=== PATIENT | male | born 1960 | race Caucasian/White ===

== ENCOUNTER 2016-10-26 05:37 | Day surgery (SDC) | payer BC ==
[2016-10-25 11:44] LABS: HEMATOCRIT 48.9 % (42.0-54.0); HEMOGLOBIN 17.1 g/dL (13.5-17.5); MCV 91.6 fL (80.0-100.0); MEAN PLATELET VOLUME 11.1 fL (7.4-10.4); RBC 5.34 10x6/uL (4.20-6.10); RDW 11.7 % (11.5-14.5); WBC 6.6 10x3/uL (4.8-10.8)
[2016-10-25 12:02] LABS: ANION GAP 6.6 mmol/L (8-16); CALCIUM 9.3 mg/dL (8.5-10.1); CARBON DIOXIDE 32.8 mmol/L (21.0-32.0); CREATININE - SERUM 1.3 mg/dL (0.6-1.3); POTASSIUM - SERUM 4.4 mmol/L (3.5-5.1)
[~2016-10-26] VITALS: Ht 172.7 cm; Wt 108.0 kg
[~2016-10-26 05:37] MED LIST: AMARYL1 MG PO; ASPIRIN 81 MG E81 MG PO; AXIRON30 MG/1.5; AXIRON30 MG/1.5 TP; EFFIENT10 MG PO; FISH OIL 1,0001 CA1 PO; FISH OIL 1,2001 CAP PO; NIASPAN500 MG PO; NITROSTAT0.4 MG SL; PLAVIX75 MG OR; PLAVIX75 MG PO; PRAVACHOL40 MG PO; PRINIVIL20 MG PO
[2016-10-26] MEDS ORDERED: LOVENOX120 MG/0.8 SC (06:25)
[2016-10-26 06:28] VITALS: BP 150/89; Ht 172.7 cm; Wt 108.0 kg
[2016-10-26] MEDS ORDERED: HYDROCODONE-APA1 TAB PO (08:44)
--- NOTE | 2016-10-26 10:33 | NUR ---
1015 IV DC WITH CATHER TIP INTACT
--- NOTE | 2016-10-30 17:08 | OP ---
PATIENT NAME: BRADY TAYLOR MEDICAL RECORD: [id number] :58 LOCATION:[facility] ADMISSION DATE: SURGEON: SARBJIT HAIDER MD DATE OF OPERATION: 10/26/2016 Orthopedic Surgery Operative Note DIAGNOSES: 1. Dupuytren contracture, right hand, small finger. 2. Trigger finger, right-hand index finger. 3. Trigger finger, index finger. 4. MCP joint inflammation, right hand. PROCEDURES: 1. Dupuytrens contracture excision, right hand, small finger. 2. A1 reddy trigger finger release, right-hand index finger. 3. A1 reddy release, right-hand long finger. 4. Injection into the long finger MCP joint. SURGEON: Sarbjit Haider MD ANESTHESIA: General. INTRAOPERATIVE COMPLICATIONS: None. SUMMARY OF PATHOLOGIC FINDINGS: Consistent with the preoperative diagnosis, the patient had trigger fingers as described and a Dupuytren's contracture as well as swelling of the right hand long finger MCP joint. OPERATIVE SUMMARY IN DETAIL: After obtaining the appropriate preoperative orthopedic surgery consent as well as anesthetic consultation, evaluation and clearance, the patient was brought to the operating room and placed on the operating table in supine position. After general laryngeal mask was administered, tourniquet was placed about the proximal aspect of the right upper extremity. Right upper extremity was prepped and draped in routine sterile fashion. The arm was elevated and exsanguinated, tourniquet inflated to 350 mmHg. Volar zigzag incision was made over the Dupuytren's contracture. Careful dissection was taken down to expose the entire palmar aponeurotic cord. This was excised in its entirety. Wound was then irrigated and closed with 4-0 Prolene in a multiple interrupted fashion. A small incision was made at the base of the long finger, taken down directly to the A1 reddy. Under direct visualization, the entire A1 reddy was incised. This was irrigated and closed. Attention was then turned to the index finger A1 reddy. A second incision was created, taken down to the level of the A1 reddy, which was incised under direct visualization releasing the trigger finger. Again, this was irrigated and closed with 4-0 Prolene. Next, 20 mg of Depo-Medrol and 3 cc of 0.25% Marcaine plain were injected into the MCP joint of the long finger on the right hand. Having completed this, sterile dressings were applied. Tourniquet was deflated. The patient was awakened, taken to recovery room in stable condition. All final needle and sponge counts were correct. TRANSINT:[id number] Voice Confirmation ID: [id number] DOCUMENT ID: [id number] OPERATIVE REPORT [id number] BRADY TAYLOR MD, SARBJIT WADE at 1708 CC: [id number] DICTATION DATE: 10/26/16900 REGULATORY AGENCY DIRECTOR: 10/26/16918 [facility] 10/26/16 [facility] [address] [place] [address]
== END 2016-10-26 10:40 | disposition home or self-care (01) ==
LOC: D.OPS 05:37 → D.PAN 07:30 → D.OPS 08:00
PROVIDERS: Anesthesiology
DX: M72.0 Palmar fascial fibromatosis [Dupuytren] (principal); M65.321 Trigger finger, right index finger; M65.331 Trigger finger, right middle finger; M13.841 Other specified arthritis, right hand

== ENCOUNTER → 2017-08-07 08:45 | Outpatient (CLI) | payer BC ==
[~2017-08-07] VITALS: Ht 172.7 cm; Wt 106.1 kg
[~2017-08-07 08:45] MED LIST changes: +HYDROCODONE-APA1 TAB PO; +LOVENOX120 MG/0.8 SC
[2017-08-07 10:37] VITALS: Ht 172.7 cm; Wt 106.1 kg
== END | disposition home or self-care (01) ==
LOC: D.FANS 08:45
DX: E11.9 Type 2 diabetes mellitus without complications (principal)

== ENCOUNTER → 2017-09-19 07:46 | Outpatient (CLI) | payer BC ==
[2017-08-07 10:37] VITALS: BMI 35.5
== END | disposition home or self-care (01) ==
LOC: D.US 07:46
DX: K75.9 Inflammatory liver disease, unspecified (principal)

== ENCOUNTER 2017-11-16 07:34 | Outpatient (CLI) | payer BC ==
[~2017-11-16] VITALS: Ht 172.7 cm; Wt 106.8 kg
[2017-11-16 08:11] LABS: BASOPHILS 0.4 % (0-2); HEMATOCRIT 47.5 % (42.0-54.0); HEMOGLOBIN 16.8 g/dL (13.5-17.5); IMMATURE GRANULOCYTES 0.4 % (0-5); LYMPHOCYTES 22.2 % (15-50); MCH 32.1 pg (26.0-34.0); MCHC 35.4 g/dL (31.0-37.0); MCV 90.6 fL (80.0-100.0); MEAN PLATELET VOLUME 10.7 fL (7.4-10.4); PLATELET COUNT 230 10x3/uL (130-400); RBC 5.24 10x6/uL (4.20-6.10)
[2017-11-16 08:21] LABS: ANION GAP 10.7 mmol/L (8-16); APTT 26.6 SECONDS (22.8-39.4); CALCIUM 9.3 mg/dL (8.5-10.1); CREATININE - SERUM 1.1 mg/dL (0.6-1.3); INR 1.01 (0.85-1.17); POTASSIUM - SERUM 4.7 mmol/L (3.5-5.1); PROTIME 12.9 SECONDS (11.6-15.0)
[2017-11-16 08:50] VITALS: Ht 172.7 cm; Wt 106.8 kg
[2017-11-16 09:44] LABS: CHOL - HDL RATIO 5.7 ratio (2.3-4.9); LDL-HDL RATIO 4.2 ratio (1.5-3.5)
[2017-11-17 06:13] LABS: ALPHA FETOPROTEIN -(TUMOR MRK) 2.1 ng/mL (0.0-8.3)
[2017-11-18 14:08] LABS: HAPTOGLOBIN 184 mg/dL (34-200)
[2017-11-19 15:19] LABS: SMOOTH MUSCLE ABS (ACTIN) 7 Units (0-19)
== END 2017-11-16 15:00 | disposition home or self-care (01) ==
LOC: D.OPS 07:34 → D.CT 10:00 → D.OPS 10:00 → D.CT 11:00 → D.OPS 15:00
PROVIDERS: Internal Medicine Gastroenterology; Radiology Diagnostic Radiology
DX: R74.8 Abnormal levels of other serum enzymes (principal); R16.0 Hepatomegaly, not elsewhere classified; Z01.812 Encounter for preprocedural laboratory examination

== ENCOUNTER → 2017-12-07 13:05 | Outpatient (CLI) | payer BC ==
[2017-11-16 08:50] VITALS: BMI 35.8
[2017-12-07 13:55] LABS: % SATURATION 26 % (15-55); IRON 90 ug/dl (35-150); TOTAL IRON BIND CAPACITY 339 ug/dl (260-445); UNSAT IRON BIND CAPACITY 249 ug/dl (150-375)
[2017-12-07 14:10] LABS: BILIRUBIN - DIRECT 0.1 mg/dL (0.00-0.30); BILIRUBIN - INDIRECT 0.26 mg/dL (0.00-1.00); BILIRUBIN - TOTAL 0.36 mg/dL (0.2-1.3)
[2017-12-10 11:13] LABS: FOLATE (FOLIC ACID) - SERUM 11.2 ng/mL (>3.0)
[2017-12-11 03:11] LABS: HEPATITIS C ANTIBODY 0.1 (0.0-0.9)
[2017-12-11 12:18] LABS: MITOCHONDRIAL ANTIBODY 10.3 Units (0.0-20.0)
== END | disposition home or self-care (01) ==
LOC: D.LAB 12-06 11:45
PROVIDERS: Internal Medicine Gastroenterology
DX: R74.8 Abnormal levels of other serum enzymes (principal); R16.0 Hepatomegaly, not elsewhere classified

== ENCOUNTER → 2018-05-20 07:21 | Outpatient (CLI) | payer BC ==
[2017-11-16 08:50] VITALS: BMI 35.8
[2018-05-20 08:09] LABS: ALBUMIN 3.6 g/dL (3.4-5.0); BILIRUBIN - DIRECT 0.07 mg/dL (0.00-0.30); BILIRUBIN - INDIRECT 0.27 mg/dL (0.00-1.00); BILIRUBIN - TOTAL 0.34 mg/dL (0.2-1.3)
== END | disposition home or self-care (01) ==
LOC: D.US 07:21
PROVIDERS: Internal Medicine Gastroenterology
DX: K76.0 Fatty (change of) liver, not elsewhere classified (principal)

== ENCOUNTER → 2018-09-23 13:04 | Outpatient (CLI) | payer BC ==
[2017-11-16 08:50] VITALS: BMI 35.8
[2018-09-23 13:38] LABS: BASOPHILS 0.7 % (0-2); EOSINOPHILS 2.9 % (0-7); HEMATOCRIT 42.3 % (42.0-54.0); HEMOGLOBIN 15.1 g/dL (13.5-17.5); IMMATURE GRANULOCYTES 0.4 % (0-5); LYMPHOCYTES 29.5 % (15-50); MCH 32.1 pg (26.0-34.0); MCHC 35.7 g/dL (31.0-37.0); MCV 89.8 fL (80.0-100.0); MEAN PLATELET VOLUME 10.6 fL (7.4-10.4); MONOCYTES 8.5 % (2-11); PLATELET COUNT 224 10x3/uL (130-400); RBC 4.71 10x6/uL (4.20-6.10); WBC 6.9 10x3/uL (4.8-10.8)
[2018-09-23 14:45] LABS: ERYTHROCYTE SEDIMENTATION RATE 10 mm/hr (0-20)
[2018-09-25 10:10] LABS: ANA REFLEX - DIRECT Negative (Negative)
[2018-09-26 20:08] LABS: CYCLIC CITRULL PEPTIDE IGG/IGA 4 units (0-19)
== END | disposition home or self-care (01) ==
LOC: D.LAB 13:04
PROVIDERS: Orthopaedic Surgery
DX: M13.80 Other specified arthritis, unspecified site (principal)

== ENCOUNTER 2018-10-10 14:44 | Observation (INO) | payer BC ==
[~2018-10-10] VITALS: Ht 172.7 cm; Wt 115.0 kg
--- NOTE | ~2018-10-10 | HEMODYNAMI ---
PATIENT:BRADY TAYLOR MEDICAL RECORD: [id number] : 58 LOCATION:[address] [facility]# [id number] ADMISSION DATE: 10/10/18 Generatedon:10/11/201811:51 Patient name: BRADY TAYLOR Patient #: [id number] SSN: : 1960 Date of study: 10/11/2018 Page: Of Hemodynamic Procedure Report Patient Data Patient Demographics Procedure consent was obtained First Name: BRADY Gender: Male Last Name: BRANDON : 1960 [facility] Initial: LAVON Age: 58 year(s) Patient #: [id number] Race: Additional ID: [id number] Contact details Address: [address] [place] [address] [facility] State: [place] City: [facility] Zip code: [address] Past Medical History Allergies: No known allergies Admission Admission Data Admission Date: 10/10/2018 Admission Time: 17:39 Room #: D.2124 Lab Results Lab Result Date: 10/11/2018 Lab Result Time: 0:00 Biochemistry Name Units Result Min Max BUN mg/dl 23 --(----)-* 7 18 Creatinine l 1.2 -*(----)-- 21 215 Kinase CBC Name Units Result Min Max Hemoglobin g/dl 14.2 --(*---)-- 13.5 17.5 Procedure Procedure Types Cath Procedure Diagnostic Procedure [facility] w/Coronaries FFR/IVUS Intra-Coronary IVUS Initial Sedation Charges Moderate Sedation up to 15 minutes Moderate Sedation up to 30 minutes PCI Procedure Coronary Stent Coronary Stent Initial x2 Procedure Description Procedure Date Procedure Date: 10/11/2018 Procedure Start Time: 11:26 Procedure End Time: 11:47 Procedure Staff Name Function Rishi Mcelroy MD Performing Physician Maude Pabon RT Purchasing Manager Estrella Kelly RT Monitor Essence Chris RN Nurse Maude Pabon RT Scrub Procedure Data Cath Procedure Fluoroscopy Diagnostic fluoroscopy Total fluoroscopy Time: 4.9 time: 4.9 min min Diagnostic fluoroscopy Total fluoroscopy dose: 4.9 dose: 4.9 mGy mGy Contrast Material Contrast Material Type Amount (ml) Isovue 300 118 Entry Location Entry Primary Successful Side Size Upsize Upsize Entry Closure Succes sful Closure Location (Fr) 1 (Fr) 2 (Fr) Remarks Device Remarks Femoral Right 5 Fr 6 Fr Exoseal artery Short Estimated blood loss: 10 ml Diagnostic catheters Device Type Used For End Catheter Placement MULTIPACK Pigtail 5 Fr Procedure catheter MULTIPACK JL 4.0 5Fr Left Coronary catheter Angiography MULTIPACK 3DRC 5Fr catheter Procedure Complications No complications Procedure Medications Medication Administration Route Dosage Oxygen etCO2 Nasal cannula 2 l/min Lidocaine 2% added to field 20 Heparin Flush Bag added to field 2 bags (1000units/500ml NS) 0.9% NaCl I.V. 100 ml/hr Versed I.V. 1 mg Fentanyl I.V. 50 mcg Versed I.V. 1 mg Fentanyl I.V. 50 mcg Versed I.V. 1 mg Fentanyl I.V. 50 mcg Heparin Bolus I.V. 4000 units Integrilin (Bolus I.V. 9 ml 2mg/ml) Versed I.V. 1 mg Fentanyl I.V. 50 mcg Plavix P.O. 600 mg Hemodynamics Rest HGB: 14.2 (g/dl) Heart Rate: 65 (bpm) Snapshots Pre Cath Intra NCS Post Cath Vital Signs Time Heart Resp SPO2 etCO2 NIBP (mmHg) Rhythm Pain Sedation Rate (ipm) (%) (mmHg) Status Level (bpm) 11:10:43 67 14 100 30.8 133/98(111) NSR 0 (11) 10(A) , No pain 11:14:49 69 16 94 30 118/80(101) NSR 0 (11) 10(A) , No pain 11:18:53 74 15 95 0 128/80(106) NSR 0 (11) 10(A) , No pain 11:23:01 77 13 95 32.3 127/76(108) NSR 0 (11) 10(A) , No pain 11:27:06 80 13 96 36.8 110/88(102) NSR 0 (11) 9(A) , No pain 11:31:06 89 15 96 33.7 99/85(91) NSR 0 (11) 9(A) , No pain 11:35:00 88 16 95 0 109/95(101) NSR 0 (11) 9(A) , No pain 11:38:59 88 14 95 0 106/82(100) NSR 0 (11) 9(A) , No pain 11:43:44 88 16 97 0 117/84(104) NSR 0 (11) 10(A) , No pain Medications Time Medication Route Dose Verified Delivered Reason Notes Effectiveness by by 11:12:18 Oxygen etCO2 2 Rishi Lowry used for Nasal l/min Lilibeth Chris RN procedure cannula 11:12:25 Lidocaine 2% added 20ml Rishidorothy Blackwell for local to vial Lilibeth Mcelroy MD anesthetic field 11:12:34 Heparin Flush added 2 Rishi Rishi used for Bag to bags Lilibeth Mcelroy MD procedure (1000units/500ml field NS) 11:12:55 0.9% NaCl I.V. 100 Rishi Buffie Per physician ml/hr Lilibeth hCris RN 11:20:34 Versed I.V. 1 mg Rishi Buffie for sedation Lilibeth Chris RN 11:20:39 Fentanyl I.V. 50 Rishi Buffie for sedation mcg Lilibeth Chris RN 11:24:00 Versed I.V. 1 mg Rishi Buffie for sedation Lilibeth Chris RN 11:24:04 Fentanyl I.V. 50 Rishi Buffie for sedation mcg Lilibeth Chris RN 11:30:21 Versed I.V. 1 mg Rishi Buffie for sedation Lilibeth Chris RN 11:30:25 Fentanyl I.V. 50 Rishi Buffie for sedation mcg Lilibeth Chris RN 11:35:54 Heparin Bolus I.V. 4000 Rishi Buffie for verif ied units Lilibeth Chris RN anticoagulation with dr mcelroy 11:36:55 Integrilin I.V. 9 ml Rishi Buffie for Waste d 1 (Bolus 2mg/ml) Lilibeth Chris RN antiplatelet ml of therapy vial 11:43:06 Versed I.V. 1 mg Rishi Buffie for sedation Lilibeth Chris RN 11:43:09 Fentanyl I.V. 50 Rishi Buffie for sedation mcg Lilibeth Chris RN 11:47:53 Plavix P.O. 600 Rishi Markie for mg Lilibeth Chris RN antiplatelet therapy Procedure Log Time Note 10:52:17 Diagnostic Cath status Elective 10:52:20 Maude Pabon RT(R) sent for patient. Start room use. 10:52:35 Time tracking: Regular hours (M-F 7:00 - 5:00) 10:52:41 Plan of Care:Hemodynamics will remain stable., Cardiac rhythm will remain stable., Comfort level will be maintained., Respiratory function will remain adequate., Patient/ family verbilizes understanding of procedure., Procedure tolerated without complication., Recovers from procedure without complications.. 10:52:48 Patient received from Med II to CCL 2 Alert and oriented. Tansferred to table in Supine position. 10:54:01 Lab Result : BUN 23 mg/dl 10:54:01 Lab Result : Creatinine Kinase 1.2 l 10:54:01 Lab Result : Hemoglobin 14.2 g/dl 11:02:56 Warm blankets applied, and cuco hugger turned on for patient comfort. 11:02:56 Correct patient and procedure confirmed by team. 11:02:58 Signed procedure consent form obtained from patient. 11:02:59 ECG and BP/O2 sat monitors applied to patient. 11:09:40 Vital chart was started 11:09:41 Baseline sample Acquired. 11:09:45 Rhythm: sinus rhythm 11:09:46 Full Disclosure recording started 11:09:55 H&P Date Dictated: 10/10/2018 Within 30 days and on chart.. 11:09:57 Pre-procedure instructions explained to patient. 11:10:00 Family in waiting room. 11:10:08 Patient NPO since Midnight. 11:10:18 Patient allergic to No known allergies 11:10:23 Is the patient allergic to Iodine/contrast media? No. 11:10:29 Was the patient premedicated? Yes 11:10:31 Is patient on blood thinner?No 11:10:34 Patient diabetic? Yes. 11:10:35 If diabetic: On Metformin? No 11:10:41 Snore? Yes 11:10:42 Sleep apnea? No 11:10:47 Dentures? No ? 11:10:54 Patient pain scale 0/10 ?. 11:10:59 IV patent on arrival in right forearm with 0.9% NaCl at O. 11:11:03 Lab results completed and on chart. 11:11:07 Right groin area was prepped with chlora-prep and draped in sterile fashion 11::08 Alarms reviewed by R. N. :: Sharps counted by scrub and verified by R.N. 11::12 Physician paged 11:12:18 Oxygen 2 l/min etCO2 Nasal cannula was administered by Essence Chris RN; used for procedure; 11:12:25 Lidocaine 2% 20ml vial added to field was administered by Rishi Mcelroy MD; for local anesthetic; ::34 Heparin Flush Bag (1000units/500ml NS) 2 bags added to field was administered by Rishi Mcelroy MD; used for procedure; 11::55 0.9% NaCl 100 ml/hr I.V. was administered by Essence Chris RN; Per physician; :18:04 Zero performed for pressure channel P1 11:18:44 --------ALL STOP TIME OUT------ 11:18:47 Final Timeout: patient, procedure, and site verified with staff and physician. All members of the team are in agreement. 11:18:50 Right groin site verified by team. 11:18:54 Physical assessment completed. ASA score P 2 - A patient with mild systemic disease as per Rishi Mcelroy MD. 11:18:58 Sedation plan: IV Moderate Sedation Medication:Versed, Fentanyl 11:20:34 Versed 1 mg I.V. was administered by Essence Chris RN; for sedation; 11:20:39 Fentanyl 50 mcg I.V. was administered by Essence Chris RN; for sedation; 11:24:00 Versed 1 mg I.V. was administered by Essence Chris RN; for sedation; 11:24:04 Fentanyl 50 mcg I.V. was administered by Essence Chris RN; for sedation; 11:25:54 Use device set Femoral Dx 11:25:56 Procedure started. 11:25:58 ACIST Syringe (07156) opened to sterile field. 11:25:59 Bag Decanter (2002S) opened to sterile field. 11:25:59 Medline Cath Pack ([id number]) opened to sterile field. 11:26:00 DIAGNOSTIC WIRE .035 260cm J wire (460565) opened to sterile field. 11:26:01 ACIST Hand Control (21136) opened to sterile field. 11:26:01 ACIST Manifold (00995) opened to sterile field. 11:26:02 DIAGNOSTIC Multipack 5Fr catheter set (SR4375) opened to sterile field. 11:26:04 Tegaderm 4 x 4 (1626W) opened to sterile field. 11:26:06 SHEATH 5FR [place] (VTC635) opened to sterile field. 11:26:10 Local anesthetic to right femoral artery with Lidocaine 2% by Rishi Mcelroy MD.INITIAL ACCESS ONLY 11:26:46 A 5 Fr sheath was inserted into the Right Femoral artery 11:27:32 A MULTIPACK Pigtail 5 Fr catheter was advanced over the wire and used for Procedure. 11:30:21 Versed 1 mg I.V. was administered by Essence Chris RN; for sedation; 11:30:25 Fentanyl 50 mcg I.V. was administered by Essence Chris RN; for sedation; 11:30:44 EF : 60 % 11:30:47 Catheter removed. 11:31:04 A MULTIPACK JL 4.0 5Fr catheter was advanced over the wire and used for Left Coronary Angiography. 11:32:12 LCA angiography performed. 11:32:14 Catheter removed. 11:32:32 A MULTIPACK 3DRC 5Fr catheter was advanced over the wire and used for . 11:32:42 RCA angiography performed. 11:35:06 SHEATH 6FR [place] (FQP162) opened to sterile field. 11:35:06 INFLATOR Merit BasixCompak (EV6586) opened to sterile field. 11:35:07 CHOICE PT Extra Support 182cm wire ([id number]) opened to sterile field. 11:35:07 GUIDE 6FR XBLAD 3.5 catheter (05181595) opened to sterile field. 11:35:08 GUIDE 6FR AR 1.0 SH catheter ([id number]) opened to sterile field. 11:35:19 Homer Chevak Eagleye IVUS Catheter (77717G) opened to sterile field. 11:35:33 Sheath upsized to a 6 Fr Short. 11:35:48 6 Fr AR1SH guide catheter was inserted over the wire 11:35:53 choice pt wire advanced. 11:35:54 Heparin Bolus 4000 units I.V. was administered by Essence Chris RN; for anticoagulation; verified with dr tauth 11:36:55 Integrilin (Bolus 2mg/ml) 9 ml I.V. was administered by Essence Chris RN; for antiplatelet therapy; Wasted 1 ml of vial 11:37:57 IVUS catheter advanced over wire. 11:37:58 IVUS catheter removed over wire. 11:38:31 Place stent Inflation Number: 1 A SHELLY RX 3.5 x 26 stent ([id number]) was prepped and advanced across the Mid RCA. The stent was deployed at 17 MERY for 0:08 (min:sec). 11:38:46 Inflation number: 2 The stent balloon was then re-inflated across the Mid RCA to 21 MERY for 0:10 (min:sec). 11:39:20 Inflation number: 3 The stent balloon was then re-inflated across the Mid RCA to 21 MERY for 0:10 (min:sec). 11:39:53 Stent catheter was removed intact over wire. 11:39:54 Wire removed. 11:39:55 Guide catheter removed. 11:40:17 6 Fr XBLAD3.5 guide catheter was inserted over the wire 11:40:22 choice pt wire advanced. 11:40:28 Wire redirected to LAD. 11:43:06 Versed 1 mg I.V. was administered by Essence Chris RN; for sedation; 11:43:09 Fentanyl 50 mcg I.V. was administered by Essence Chris RN; for sedation; 11:43:24 Place stent Inflation Number: 1 A SHELLY RX 2.25 x 26 stent ([id number]) was prepped and advanced across the Mid LAD. The stent was deployed at 17 MERY for 0:10 (min:sec). 11:43:47 EXOSEAL 6Fr (EX600) opened to sterile field. 11:43:55 Wire removed. 11:43:55 Guide catheter removed. 11:44:04 Sheath removed intact; hemostasis achieved with Exoseal to the Right Femoral artery. 11:44:06 Procedure ended.(Physican Out) 11:44:18 Fluoroscopy time 04.90 minutes. 11:44:48 Fluoroscopy dose: 4.9 mGy 11:44:48 Flurop Dose total: 4.9 11:44:54 Contrast amount:Isovue 300 118ml. 11:44:56 Sharps counted by scrub and verified by R.N. 11:44:57 Insertion/operative site no bleeding no hematoma. 11:45:01 Post right femoral artery:stable 11:45:10 Post-procedure physical assessment completed. ASA score P 2 - A patient with mild systemic disease as per Rishi Mcelroy MD. 11:45:14 Post procedure rhythm: unchanged. 11:45:17 Estimated blood loss: 10 ml 11:45:19 Post procedure instruction explained to patient.Patient verbalizes understanding. 11:46:06 Procedure type changed to Cath procedure, Diagnostic procedure, LHC, LHC w/Coronaries, FFR/IVUS, Intra-Coronary IVUS Initial, Sedation Charges, Moderate Sedation up to 15 minutes, Moderate Sedation up to 30 minutes, PCI procedure, Coronary Stent, Coronary Stent Initial x2 11:46:07 Procedure and supply charges have been captured, reviewed, submitted and are correct. 11:46:41 Procedure Complication : No complications 11:46:43 Vital chart was stopped 11:46:43 See physician's report for complete and final results. 11:46:46 Report given to Pre/Post Procedure Room. 11:47:31 Patient transfered to Pre/Post Procedure Room with Stretcher. 11:47:34 Procedure ended. 11:47:34 Full Disclosure recording stopped 11:47:37 End room use (Document Last) 11:47:53 Plavix 600 mg P.O. was administered by Essence Chris RN; for antiplatelet therapy; Intervention Summary Intervention Notes Time ActionType Lesion and Equipment Used Action# Pressure Duration Attributes 11:38:31 Place stent Mid RCA SHELLY RX 3.5 x 1 17 00:08 26 stent ([id number]) 11:38:46 Reinflate Mid RCA SHELLY RX 3.5 x 2 21 00:10 stent 26 stent balloon ([id number]) 11:39:20 Reinflate Mid RCA SHELLY RX 3.5 x 3 21 00:10 stent 26 stent balloon ([id number]) 11:43:24 Place stent Mid LAD SHELLY RX 2.25 x 1 17 00:10 26 stent ([id number]) Device Usage Item Name Manufacture Quantity Catalog Number Hospital Part Current M inimal Lot# / Charge Number Stock Stock Serial# Code ACIST Syringe Acist 1 99351 330311 789177 041654 2 0 (79266) [employer] [place] Bag Decanter Microtek 1 238758 47345 531216 5 () Medical Inc. Medline Cath Medline 1 [id number] 286922 36262 565848 5 Pack ([id number]) DIAGNOSTIC [facility] Fernie 1 550518 497834 519462 540905 3 0 WIRE .035 260cm J wire (374233) ACIST Hand Acist 1 50008 983068 646616 424725 5 Control Medical (57054) Systems Inc ACIST Manifold Acist 1 14598 159146 359549 265825 5 (86823) Medical Systems Inc DIAGNOSTIC Cardinal 1 ND9114 769106 75284 742710 3 0 Multipack 5Fr Health catheter set (WY9429) Tegaderm 4 x 4 3M 1 1626W 443692 602062 794240 5 (1626W) SHEATH 5FR Terumo 1 UBF198 964815 851752 277830 5 [place] (CUI303) MULTIPACK Cardinal 1 531202 5 Pigtail 5 Fr Health catheter MULTIPACK JL Cardinal 1 658943 5 4.0 5Fr Health catheter MULTIPACK 3DRC Cardinal 1 085877 5 5Fr catheter Health SHEATH 6FR Terumo 1 PXU579 252946 389304 282287 4 0 [place] (ODS099) INFLATOR Merit Merit 1 CR9083 468380 683743 355775 1 5 Prezma (PK2475) CHOICE PT Commack 1 [id number] 383226 465015 176667 5 Extra Support Scientific 182cm wire ([id number]) GUIDE 6FR Cardinal 1 84554202 168511 750383 450705 1 0 XBLAD 3.5 Health catheter (41575898) GUIDE 6FR AR Medtronic 1 [id number] 179777 60201 058230 1 1.0 SH catheter ([id number]) Homer Homer 1 77868X 246731 433735 491768 8 Chevak Eagleye IVUS Catheter (18111C) SHELLY RX 3.5 x Medtronic 1 [id number] 068628 0531142 287354 5 [id number] 26 stent ([id number]) SHELLY RX 2.25 x Medtronic 1 [id number] 252338 5106223 522610 5 [id number] 26 stent ([id number]) EXOSEAL 6Fr Cardinal 1 EX600 232265 134325 052873 1 0 (EX600) Health Signature Audit Aguila Stage Time Signature Unsigned Intra-Procedure 10/11/2018 Estrella Kelly 11:51:35 AM RT(R) Signatures Monitor : Estrella Kelly Signature : RT Date : Time : [address] [place] [address]
[2018-10-10 15:19] LABS: BASOPHILS 0.5 % (0-2); EOSINOPHILS 3.4 % (0-7); HEMATOCRIT 40.3 % (42.0-54.0); HEMOGLOBIN 14.2 g/dL (13.5-17.5); IMMATURE GRANULOCYTES 0.2 % (0-5); LYMPHOCYTES 30.3 % (15-50); MCH 31.6 pg (26.0-34.0); MCHC 35.2 g/dL (31.0-37.0); MCV 89.6 fL (80.0-100.0); MEAN PLATELET VOLUME 10.7 fL (7.4-10.4); MONOCYTES 8.2 % (2-11); NEUTROPHILS 57.4 % (40-80); PLATELET COUNT 225 10x3/uL (130-400); RDW 12.1 % (11.5-14.5); WBC 6.5 10x3/uL (4.8-10.8)
[2018-10-10 15:35] LABS: ALBUMIN 3.8 g/dL (3.4-5.0); ALKALINE PHOSPHATASE 54 U/L (46-116); ALT (SGPT) 61 U/L (10-68); BILIRUBIN - TOTAL 0.26 mg/dL (0.2-1.3); CALC OSMOLALITY 286 mosm/kg (275-300); CARBON DIOXIDE 24.3 mmol/L (21.0-32.0); CHLORIDE - SERUM 106 mmol/L (98-107); GLUCOSE 136 mg/dL (74-106); POTASSIUM - SERUM 3.7 mmol/L (3.5-5.1); SODIUM 141 mmol/L (136-145); UREA NITROGEN 25 mg/dL (7-18); eGFR NON AFRICAN AMERICAN 81 mL/min (90-120)
[2018-10-10 15:43] VITALS: BP 152/100
[2018-10-10 15:47] LABS: CKMB 1.3 U/L (0.0-3.6); CREATINE KINASE 269 UL (21-232); TROPONIN-I < 0.017 ng/mL (0.000-0.060)
[2018-10-10 17:08] VITALS: BP 136/91
--- NOTE | 2018-10-10 18:00 | NUR ---
DINNER TRAY PROVIDED, PT STABLE, CALL LIGHT WITHIN REACH, DENIES NEEDS, WILL CONTINUE TO MONITOR. AT BEDSIDE.
[2018-10-10 18:06] VITALS: BP 140/92
[2018-10-10 19:02] VITALS: BP 144/91
--- NOTE | 2018-10-10 19:09 | NUR ---
REPORT HANDED OFF TO REGULO PIÑA. PT STABLE, CALL LIGHT WITHIN REACH, DENIES NEEDS, WILL CONTINUE TO MONITOR.
[2018-10-10 19:27] LABS: CKMB 1.3 U/L (0.0-3.6); CREATINE KINASE 247 UL (21-232); TROPONIN-I < 0.017 ng/mL (0.000-0.060)
[2018-10-10 20:00] VITALS: BP 86/55
[2018-10-11] VITALS: BP 140/78
[2018-10-11 01:00] VITALS: BP 147/82; Ht 172.7 cm; Wt 115.0 kg
[2018-10-11 04:00] VITALS: BP 90/50
[2018-10-11 07:23] LABS: CALC OSMOLALITY 285 mosm/kg (275-300); CALCIUM 8.9 mg/dL (8.5-10.1); CARBON DIOXIDE 26.6 mmol/L (21.0-32.0); CHLORIDE - SERUM 105 mmol/L (98-107); CKMB 0.7 U/L (0.0-3.6); CREATINE KINASE 190 UL (21-232); CREATININE - SERUM 1.2 mg/dL (0.6-1.3); GLUCOSE 119 mg/dL (74-106); SODIUM 141 mmol/L (136-145); UREA NITROGEN 23 mg/dL (7-18); eGFR NON AFRICAN AMERICAN 66 mL/min (90-120)
[2018-10-11 07:24] LABS: POTASSIUM - SERUM 4.4 mmol/L (3.5-5.1); TROPONIN-I < 0.017 ng/mL (0.000-0.060)
--- NOTE | 2018-10-11 08:14 | NUR ---
ALERT AND ORIENTED. DENIES ANY NEEDS. TO HAVE A CATH TODAY. TELEMERTY SHOWS SR. WILL MONITOR
[2018-10-11 08:20] LABS: BASOPHILS 0.6 % (0-2); EOSINOPHILS 4.3 % (0-7); HEMATOCRIT 41.6 % (42.0-54.0); HEMOGLOBIN 14.9 g/dL (13.5-17.5); IMMATURE GRANULOCYTES 0.2 % (0-5); LYMPHOCYTES 24.6 % (15-50); MCH 32.4 pg (26.0-34.0); MCHC 35.8 g/dL (31.0-37.0); MCV 90.4 fL (80.0-100.0); MEAN PLATELET VOLUME 10.7 fL (7.4-10.4); MONOCYTES 10.6 % (2-11); NEUTROPHILS 59.7 % (40-80); PLATELET COUNT 228 10x3/uL (130-400); RDW 12.2 % (11.5-14.5); WBC 6.2 10x3/uL (4.8-10.8)
[2018-10-11 08:55] VITALS: BP 129/79
--- NOTE | 2018-10-11 10:02 | NUR ---
PT PRE OPED FOR CATH
--- NOTE | 2018-10-11 10:11 | NUR ---
NO NEEDS VOICED. CALL LIGHT IN REACH. WILL MONITOR NEEDS.
[2018-10-11] MEDS ORDERED: PLAVIX75 MG PO (12:05)
--- NOTE | 2018-10-11 12:15 | NUR ---
RIGHT GROIN DRESSING C/D/I. NO S/S OF HEMATOMA NOTED. RIGHT PEDAL PULSE PALPABLE.
--- NOTE | 2018-10-11 12:45 | NUR ---
RIGHT GROIN DRESSING C/D/I. NO S/S OF HEMATOMA. VSS. RIGHT PEDAL PULSE PRESENT. DENIES NAUESA.
--- NOTE | 2018-10-11 13:00 | NUR ---
PLAVIX RX CALLED IN TO [facility] PER PT REQUEST.
--- NOTE | 2018-10-11 13:30 | NUR ---
RIGHT GROIN DRESSING C/D/I. NO S/S OF HEMATOMA NOTED. RIGHT PEDAL PULSE PALPABLE.
--- NOTE | 2018-10-11 14:00 | NUR ---
PT'S AT BEDSIDE. PT GIVEN TURKEY SANDWICH PER REQUEST. DENIES NAUSEA. RIGHT GROIN DRESSING C/D/I. NO S/S OF HEMATOMA NOTED. RIGHT PEDAL PULSE PALPABLE.
--- NOTE | 2018-10-11 15:00 | NUR ---
HEAD OF BED INCREASED TO 30 DEGREES. RIGHT GROIN DRESSING C/D/I. NO S/S OF HEMATOMA NOTED. RIGHT PEDAL PULSE PALPABLE. VSS
--- NOTE | 2018-10-11 15:57 | NUR ---
1535 DRESSING TO RIGHT GROIN IS CDI, AREA IS SOFT AND NONTENDER. PT IS ALERT AND DENIES ANY C/O. VSS, CALL LIGHT IN REACH
--- NOTE | 2018-10-11 16:29 | NUR ---
1550 IV DC'D WITH CATH INTACT. PT IS ALERT, DENIES ANY C/O. DRESSING CDI TO RIGHT GROIN, PEDAL PULSES PALPABLE. PT DRESSING FOR DC WITH ASSIST FROM . 1605 PT HAS AMBULATED TO THE BATHROOM AND VOIDED QS. DENIES ANY C/O. DC INSTRUCTIONS REVIEWED WITH PT AND WHO VERBALIZE UNDERSTANDING. PLAVIX PRESCRIPTION CALLED TO [facility] PER PT REQUEST BY NICOLASA JACKSON RN. PT AND VERBALIZE UNDERSTANDING TO START THIS MEDICATION TOMORROW. PT ESCORTED TO PRIVATE AUTO VIA WC BY NURSE WITH DRIVING HIM HOME. PT HAS ALL PERSONAL BELONGINGS AND DENIES ANY C/O UPON DC.
--- NOTE | 2018-10-15 10:22 | OP ---
PATIENT NAME: BRADY TAYLOR MEDICAL RECORD: [id number] :58 LOCATION:[facility] ADMISSION DATE:10/10/18 SURGEON: DUC FINLEY MD DATE OF OPERATION: 10/11/2018 PROCEDURES: 1. PTCA stent RCA. 2. PTCA stent LAD. 3. Intravascular ultrasound RCA. 4. Left heart catheterization. 5. Selective coronary angiography. 6. Left ventriculogram. INDICATION: Unstable angina and coronary artery disease. PROCEDURE PERFORMED: After informed consent was obtained and after a detailed description of risks, benefits as well as alternative therapies, the patient elected to proceed with angiogram and angioplasty. The right femoral area was prepped and draped in normal sterile fashion. Right femoral artery was cannulated via modified Seldinger technique with placement of 6-Moroccan sheath. All catheters exchanged through this sheath. FINDINGS: The left ventriculogram was performed in standard 30-degree LIGHT view, reveals good cardiac wall motion throughout all segments. Overall ejection fraction estimated 60%. SELECTIVE CORONARY ANGIOGRAPHY: 1. Left main showed no significant angiographic disease. 2. Left anterior descending has previously placed stents, these are patent; however, after the previously placed stents, there are 2 areas of greater than 70% stenosis. 3. The left circumflex has moderate irregularities, but no flow-limiting stenosis. 4. The right coronary artery has previously placed stents. Intravascular ultrasound confirms there is 85% in-stent restenosis at one point. PTCA STENT OF THE RCA: The stent used was a 3.5 x 26 mm [place]. Result was 0% residual stenosis. PTCA STENT OF THE LAD: The stent used was a 2.25 x 26 mm Ron taken to 17 atmospheres. Result was 0% residual stenosis. OVERALL IMPRESSION: Successful PTCA stent of the RCA and LAD, both going from 70% to 85% initial stenosis to 0% residual. TRANSINT:[id number] Voice Confirmation ID: [id number] DOCUMENT ID: [id number] OPERATIVE REPORT [id number] BRADY TAYLOR LAVON DUC FINLEY MD at 1022 CC: [id number] DICTATION DATE: 10/11/18 1151 ENTERTAINMENT CENTRE MANAGER: 10/11/18 1249 DIS IN 10/11/18 [address] [place] [address]
== END 2018-10-11 16:33 | disposition home or self-care (01) ==
LOC: D.ER 14:44 → D.M2 17:39 → D.EDHOLD 17:39 → OBSVTIME 17:39 → D.M2 18:58 → D.CLR 10-11 12:04
PROVIDERS: Emergency Medicine; ADMIT Internal Medicine Cardiovascular Disease
DX: I25.110 Atherosclerotic heart disease of native coronary artery with unstable angina pectoris (principal); I10 Essential (primary) hypertension; E11.9 Type 2 diabetes mellitus without complications

== ENCOUNTER → 2019-06-06 07:58 | Outpatient (CLI) | payer BC ==
[2018-10-11 01:00] VITALS: BMI 38.5
--- NOTE | 2019-06-10 10:10 | ST ---
PATIENT:BRADY TAYLOR MEDICAL RECORD: [id number] SEX: M LOCATION:[facility] ORDER #: ADMISSION DATE: 06/06/19 AGE OF PATIENT: 58 REFERRING PHYSICIAN: INTERPRETING PHYSICIAN: DUC FINLEY MD DATE OF SERVICE: 06/06/2019 Nuclear Stress Test INDICATIONS: Angina and coronary artery disease, shortness of breath. He was exercised on standard Lexiscan protocol with 28 mCi of sestamibi injected at peak stress, 10 mCi used previously for rest images. FINDINGS: Gated SPECT reveals a preserved ejection fraction of 52% with decreased thickening and brightening throughout the inferior segments. SPECT Imaging: Cardiolite was used as myocardial perfusion agent. There was a mixed perfusion defect inferiorly and apically, partially fixed, partially reversible. There is pure reversibility anteriorly as well as lateral, which includes the basal, mid, apical anterior segments as well as apical lateral, mid lateral, basal lateral segments. Degree of reversibility is mild to moderate between the 2 defects. The amount of myocardium involved at risk is very large. OVERALL IMPRESSION: This is a high-risk nuclear stress test, large amount of myocardium involved with ischemia anteriorly, apically, laterally and inferiorly suggestive of multivessel coronary artery disease. TRANSINT:[id number] Voice Confirmation ID: [id number] DOCUMENT ID: [id number] DUC FINLEY MD at 1010 CC: DANUTA NELSON [id number] DICTATION DATE: 06/09/19 1037 BALANCE BRIDGE INSPECTOR: 06/09/19 2305 DEP CLI 06/06/19 [place] [id number] [place] [id number]
== END | disposition home or self-care (01) ==
LOC: D.HCCARDIO 07:58
PROVIDERS: ATTEND Internal Medicine Interventional Cardiology
DX: I25.10 Atherosclerotic heart disease of native coronary artery without angina pectoris (principal)

== ENCOUNTER 2019-06-24 07:49 | Outpatient (CLI) | payer BC ==
[~2019-06-24] VITALS: Ht 172.7 cm; Wt 104.5 kg
--- NOTE | ~2019-06-24 | HEMODYNAMI ---
PATIENT:BRADY TAYLOR MEDICAL RECORD: [id number] : 58 LOCATION:[facility] ADMISSION DATE: 06/24/19 Generatedon:06/24/201910:32 Patient name: BRADY TAYLOR Patient #: [id number] SSN: [id number] : 1960 Date of study: 06/24/2019 Page: Of Hemodynamic Procedure Report Patient Data Patient Demographics Procedure consent was obtained First Name: BRADY Gender: Male Last Name: BRANDON : 1960 Middle Initial: LAVON Age: 58 year(s) Patient #: [id number] Race: SSN: [id number] Additional ID: [id number] Contact details Address: [address] [place] [address] [place] State: [place] City: [facility] Zip code: [address] Past Medical History Allergies Allergen Reaction Date Comments Reported Other allergy 06/24/2019 nka Admission Admission Data Admission Date: 06/24/2019 Admission Time: 7:49 Arrival Date: 06/24/2019 Arrival Time: 10:10 Admit Source: Other Insurance Payor: Private Room #: [id number] health insurance [facility] #: [id number] Height (in.): 67 BSA: 2.14 (m2) Height (cm.): 170.18 BMI: 35.87 (kg/m2) Weight (lbs.): 229 Weight (kg.): 103.87 Lab Results Lab Result Date: 06/24/2019 Lab Result Time: 0:00 Biochemistry Name Units Result Min Max BUN mg/dl 25 --(----)-* 7 18 Creatinine mg/dl 1.1 --(--*-)-- 0.6 1.3 eGFR ml/min 73.00982 *-(----)-- 90 120 NONAFRICAN CBC Name Units Result Min Max Hemoglobin g/dl 13.8 --(*---)-- 13.5 17.5 Procedure Procedure Types Cath Procedure Diagnostic Procedure [facility] w/Coronaries FFR/IVUS FFR Initial Sedation Charges Moderate Sedation up to 30 minutes PCI Procedure Coronary Stent Coronary Stent Initial x2 Procedure Description Procedure Date Procedure Date: 06/24/2019 Procedure Start Time: 10:04 Procedure End Time: 10:29 Procedure Staff Name Function Rishi Mcelroy MD Performing Physician Maude Pabon RT Monitor Fatemeh Catalan RT Monitor Rashid Vora RN Nurse Estrella Kelly RT Scrub Indication Angina Procedure Data Cath Procedure Fluoroscopy Diagnostic fluoroscopy Total fluoroscopy Time: 4.3 time: 4.3 min min Diagnostic fluoroscopy Total fluoroscopy dose: dose: 1032 mGy 1032 mGy Contrast Material Contrast Material Type Amount (ml) Isovue 300 95 Entry Location Entry Primary Successful Side Size Upsize Upsize Entry Closure Succes sful Closure Location (Fr) 1 (Fr) 2 (Fr) Remarks Device Remarks Femoral Right 5 Fr 6 Fr Exoseal artery Short Estimated blood loss: 10 ml Diagnostic catheters Device Type Used For End Catheter Placement MULTIPACK Pigtail 5 Fr LV Angiography catheter MULTIPACK JL 4.0 5Fr Left Coronary catheter Angiography MULTIPACK 3DRC 5Fr Right Coronary catheter Angiography Procedure Complications No complications Procedure Medications Medication Administration Route Dosage 0.9% NaCl I.V. 100 ml/hr Oxygen etCO2 Nasal cannula 2 l/min Heparin Flush Bag added to field 1 bags (1000units/500ml NS) Lidocaine 2% added to field 20 Versed I.V. 2 mg Fentanyl I.V. 100 mcg Versed I.V. 1 mg Heparin Bolus I.V. 4000 units Integrilin (Bolus I.V. 9.5 ml 2mg/ml) Integrilin (Bolus wasted 0.5 ml 2mg/ml) Plavix P.O. 600 mg Hemodynamics Rest BSA: 2.14 (m2) HGB: 13.8 (g/dl) O2 Consumption: Estimated: 252.9 (ml/min) O2 Con sumption indexed: Estimated:118.18 (ml/min/m) Heart Rate: 71 (bpm) Pressure Samples Time Site Value (mmHg) Purpose Heart Use Rate(bpm) 10:06 LV 55/4,5 Snapshot 81 Snapshots Pre Cath Intra NCS Post Cath Vital Signs Time Heart Resp SPO2 etCO2 NIBP (mmHg) Rhythm Pain Sedation Rate (ipm) (%) (mmHg) Status Level (bpm) 9:46:01 68 15 95 0 133/87(102) NSR 0 (11) 10(A) , No pain 9:50:15 69 20 98 34.6 122/75(100) NSR 0 (11) 10(A) , No pain 9:54:23 75 11 95 34.6 114/82(96) NSR 0 (11) 10(A) , No pain 9:59:28 71 11 95 36.8 111/79(93) NSR 0 (11) 10(A) , No pain 10:03:34 77 15 95 38.3 113/75(105) NSR 0 (11) 10(A) , No pain 10:07:40 79 14 95 36.8 115/75(91) NSR 0 (11) 9(A) , No pain 10:11:48 73 21 96 30.1 119/71(90) NSR 0 (11) 9(A) , No pain 10:15:55 80 16 96 28.5 117/78(99) NSR 0 (11) 9(A) , No pain 10:20:01 84 11 96 31.5 117/80(95) NSR 0 (11) 10(A) , No pain 10:24:09 77 13 97 33 118/76(100) NSR 0 (11) 10(A) , No pain 10:28:17 70 18 98 36 122/78(91) NSR 0 (11) 10(A) , No pain Medications Time Medication Route Dose Verified Delivered Reason Notes Effectiveness by by 9:46:25 0.9% NaCl I.V. 100 Rashid Rashid Per physician ml/hr Vielka Vora RN RN 9:46:36 Oxygen etCO2 2 Rashid Rashid for low 02 sats Nasal l/min Vielka Vora cannula RN RN 9:46:48 Heparin Flush added 1 Rashid Rashid used for Bag to bags Vielka Vora procedure (1000units/500ml field REGLUO RAJPUT NS) 9:47:02 Lidocaine 2% added 20ml Rashid Rashid for local to vial Vielka Vora anesthetic field RAJPUT RN 10:00:11 Versed I.V. 2 mg Rashdi Rashid for sedation Vielka Vora RN, RN 10:00:29 Fentanyl I.V. 100 Rashid Rashid for sedation mcg Vielka Vora RN RN 10:05:13 Versed I.V. 1 mg Rashid Rashid for sedation Vielka Vora RN RN 10:12:44 Heparin Bolus I.V. 4000 Rashid Rashid for units Vielka Vora anticoagulation RN RN 10:13:58 Integrilin I.V. 9.5 Rashid Rashid for (Bolus 2mg/ml) ml Vielka Vora antiplatelet RN RN therapy 10:14:06 Integrilin wasted 0.5 Rashid Rashid to sharp's (Bolus 2mg/ml) ml Vielka Vora RN RN 10:23:25 Plavix P.O. 600 Rashid Rashid for mg Vielka Vora antiplatelet RN RN therapy Procedure Log Time Note 8:46:31 Informed consent obtained and on chart 8:58:15 Arrival Date: 06/24/2019 10:10:00 AM 8:58:58 Admit Source: Other 8:59:02 Insurance Payor : Private health insurance 8:59:26 Patient Height : 67 inches 8:59:31 Patient Weight : 229 lbs 9:03:06 Diagnostic Cath Status : Elective 9:03:16 PCI Cath Status : Elective 9:05:11 Indication : Angina 9:09:32 Lab Result : eGFR NONAFRICAN 73.97180 ml/min 9:09:32 Lab Result : Creatinine 1.1 mg/dl 9:09:32 Lab Result : BUN 25 mg/dl 9:09:32 Lab Result : Hemoglobin 13.8 g/dl 9:15:57 ACC Patient presents with Unstable Angina CCS Anginal Class 3--Marked limitation of physical activity, angina occurs with ordinary activity.. 9:17:16 ACCPatient has been prescribed/administered the following anti-anginal medication within the last 2 weeks: None 9:17:31 Procedure Status Elective Heart Cath (OP). 9:17:45 Rashid Vora RN sent for patient. Start room use. 9:17:49 Time tracking: Regular hours (M-F 7:00 - 5:00) 9:17:56 Plan of Care:Hemodynamics will remain stable., Cardiac rhythm will remain stable., Comfort level will be maintained., Respiratory function will remain adequate., Patient/ family verbilizes understanding of procedure., Procedure tolerated without complication., Recovers from procedure without complications.. 9:41:24 Patient received from Pre/Post Procedure Room to CCL 2 Alert and oriented. Tansferred to table in Supine position. 9:41:28 Warm blankets applied, and cuco hugger turned on for patient comfort. 9:41:30 Correct patient and procedure confirmed by team. 9:41:31 ECG and BP/O2 sat monitors applied to patient. 9:44:54 Vital chart was started 9:45:00 Baseline sample Acquired. 9:45:10 Rhythm: sinus rhythm 9:45:12 Full Disclosure recording started 9:45:21 H&P Date Dictated: 06/24/2019 H&P Addendum completed by physician on day of procedure. (MUST COMPLETE FOR ALL OUTPATIENTS), New H&P dictated by physician.. 9:45:23 Pre-procedure instructions explained to patient. 9:45:24 Pre-op teaching completed and patient verbalized understanding. 9:45:27 Family in patients room. 9:45:30 Patient NPO since Midnight. 9:46:25 0.9% NaCl 100 ml/hr I.V. was administered by Rashid Vora RN; Per physician; Verbal order read back and verified. 9:46:36 Oxygen 2 l/min etCO2 Nasal cannula was administered by Rashid Vora RN; for low 02 sats; Verbal order read back and verified. 9:46:48 Heparin Flush Bag (1000units/500ml NS) 1 bags added to field was administered by Rashid Vora RN; used for procedure; Verbal order read back and verified. 9:47:02 Lidocaine 2% 20ml vial added to field was administered by Rashid Vora RN; for local anesthetic; Verbal order read back and verified. 9:47:50 Patient allergic to Other allergynka 9:47:58 Is the patient allergic to Iodine/contrast media? No. 9:48:01 Was the patient premedicated? No 9:48:27 Is patient on blood thinner?No 9:48:44 Patient diabetic? Yes. 9:49:07 ----Pre-sedation anethsthesia assessment.---- 9:49:13 Previous problem with sedation/anesthesia? No ? 9:49:18 Snore? Yes 9:49:21 Sleep apnea? No 9:49:23 Deviated septum? No 9:49:25 Opens mouth fully? Yes 9:49:26 Sticks out tongue? Yes 9:49:31 Airway obstruction? No ? 9:49:50 Dentures? Yes upper denture in tight 9:51:56 Lab results completed and on chart. 9:52:15 Pre procedure: right dorsailis pedis pulse 2+ Normal; easily identifiable; not easily obliterated 9:52:19 Pre procedure: left dorsailis pedis pulse 2+ Normal; easily identifiable; not easily obliterated 9:52:35 Patient pain scale 0/10 ?. 9:52:50 IV patent on arrival in left forearm with 0.9% NaCl at KVO. 9:53:00 Right groin area was prepped with chlora-prep and draped in sterile fashion 9:53:03 Alarms reviewed by RBarbara N. 9:53:03 Sharps counted by scrub and verified by R.N. 9:53:15 Physician arrived 9:53:16 --------ALL STOP TIME OUT------ 9:53:17 Final Timeout: patient, procedure, and site verified with staff and physician. All members of the team are in agreement. 9:53:21 Right groin site verified by team. 9:53:27 Fire Safety Assessment: A--An alcohol-based skin anteseptic being used preoperatively., C--Open oxygen or nitrous oxide is being used., D--An ESU, laser, or fiber-optic light is being used. 9:53:38 Physical assessment completed. ASA score P 2 - A patient with mild systemic disease as per Rishi Mcelroy MD. 9:53:48 2) 60-89 Mildly reduced kidney function, and other findings (as for stage 1) point to kidney disease. 9:53:55 Maximum allowable contrast dose (3.7 X eGFR X 0.75)202 ml. 9:54:07 Sedation plan: IV Moderate Sedation Medication:Versed, Fentanyl 9:54:41 Use device set Femoral Dx 9:54:44 ACIST Syringe (54809) opened to sterile field. 9:54:45 Bag Decanter () opened to sterile field. 9:54:48 Medline Cath Pack ([id number]) opened to sterile field. 9:54:52 ACIST Hand Control (30478) opened to sterile field. 9:54:53 ACIST Manifold (60110) opened to sterile field. 9:54:56 Tegaderm 4 x 4 (1626W) opened to sterile field. 9:54:58 EMERALD Guide Wire (502-319) opened to sterile field. 9:55:05 SHEATH 5FR Homeland (KQJ393) opened to sterile field. 9:55:07 DIAGNOSTIC Multipack 5Fr catheter set (KM5264) opened to sterile field. 9:56:19 Zero performed for pressure channel P1 10:00:11 Versed 2 mg I.V. was administered by Rashid Vora RN; for sedation; Verbal order read back and verified. 10:00:29 Fentanyl 100 mcg I.V. was administered by Rashid Vora RN; for sedation; Verbal order read back and verified. 10:04:35 Procedure started. 10:04:54 Local anesthetic to right femoral artery with Lidocaine 2% by Rishi Mcelroy MD.INITIAL ACCESS ONLY 10:05:13 Versed 1 mg I.V. was administered by Rashid Vora RN; for sedation; Verbal order read back and verified. 10:05:50 A 5 Fr sheath was inserted into the Right Femoral artery 10:06:10 A MULTIPACK Pigtail 5 Fr catheter was advanced over the wire and used for LV Angiography. 10:06:41 LV hemodynamics recorded. 10:06:46 LV gram done using LIGHT 10:06:53 Injector settings: Ml/sec: 5, Volume: 15, 10:07:05 EF : 55 % 10:07:20 Catheter removed. 10:07:33 A MULTIPACK JL 4.0 5Fr catheter was advanced over the wire and used for Left Coronary Angiography. 10:07:49 Injector settings: Ml/sec: 3, Volume: 6, 10:08:32 Catheter removed. 10:08:39 A MULTIPACK 3DRC 5Fr catheter was advanced over the wire and used for Right Coronary Angiography. 10:08:59 INFLATOR Merit BasixCompak (OR3939) opened to sterile field. 10:09:09 SHEATH 6FR Homeland (PHG249) opened to sterile field. 10:09:42 Catheter removed. 10:10:10 Teague Verrata Plus pressure wire (01012B) opened to sterile field. 10:10:35 GUIDE 6FR AR 1.0 catheter (WO0ET91) opened to sterile field. 10:10:45 Proceeding to intervention. 10:11:04 Sheath upsized to a 6 Fr Short. 10:11:17 Pre PCI Site: [place] mRCA has 80% stenosis. 10:11:17 ACC Pre-intervention AIMEE Flow is 3. 10:11:17 6 Fr ar 1 guide catheter was inserted over the wire 10:11:18 Sheath removed intact; hemostasis achieved with Exoseal to the Right Femoral artery. 10:11:26 FFR/IFR wire advanced. 10:12:07 Baseline FFR 1. 10:12:10 Wire advanced across lesion. 10:12:44 Heparin Bolus 4000 units I.V. was administered by Rashid Vora RN; for anticoagulation; Verbal order read back and verified. 10:12:56 mRCA lesion measured at 0.85 with IFR 10:13:58 Integrilin (Bolus 2mg/ml) 9.5 ml I.V. was administered by Rashid Vora RN; for antiplatelet therapy; Verbal order read back and verified. 10:14:06 Integrilin (Bolus 2mg/ml) 0.5 ml wasted was administered by Rashid Vora RN; to sharp's; Verbal order read back and verified. 10:14:29 Place stent Inflation Number: 1 A SHELLY RX 3.5 x 30 stent ([id number]) was prepped and advanced across the Mid RCA 80. The stent was deployed at 23 MERY for 0:10 (min:sec) 0. 10:15:08 Inflation number: 1 The stent balloon was then re-inflated across the Prox RCA 80 to 23 MERY for 0:10 (min:sec) . 10:15:25 Stent catheter was removed intact over wire. 10:15:27 Wire removed. 10:15:30 Guide catheter removed. 10:15:49 CHOICE PT Extra Support 182cm wire ([id number]) opened to sterile field. 10:16:09 GUIDE 6FR XB 3.5 catheter ([id number]) opened to sterile field. 10:16:29 6 Fr xb3.5 guide catheter was inserted over the wire 10:16:39 choice pt wire advanced. 10:17:03 Wire advanced across lesion. 10:17:09 ACC Pre-intervention AIMEE Flow is 3. 10:17:27 Pre PCI Site: [place] mCirc has 90% stenosis. 10:18:56 Place stent Inflation Number: 1 A SHELLY RX 2.25 x 12 stent ([id number]) was prepped and advanced across the Mid CX 90. The stent was deployed at 21 MERY for 0:10 (min:sec) . 10:20:08 Post PCI Site: [place] mCirc has 0% stenosis. 10:20:20 ACC Post-intervention AIMEE Flow is 3. 10:20:30 Stent catheter was removed intact over wire. 10:20:32 ACT drawn and resulted at 155 seconds. (normal therapeutic range 180-240 seconds). 10:20:32 Wire removed. 10:20:33 Guide catheter removed. 10:20:55 EXOSEAL 6Fr (EX600) opened to sterile field. 10:23:25 Plavix 600 mg P.O. was administered by Rashid Vora RN; for antiplatelet therapy; Verbal order read back and verified. 10:26:04 Procedure ended.(Physican Out) 10:26:13 Fluoroscopy time 04.30 minutes. 10:26:20 Fluoroscopy dose: 1032 mGy 10:26:20 Flurop Dose total: 1032 10:26:28 Dose Area Product 37518 mGy/cm. 10:26:36 Contrast amount:Isovue 300 95ml. 10:26:41 Sharps counted by scrub and verified by R.N. 10:26:44 Insertion/operative site no bleeding no hematoma. 10:26:53 Post-op/insertion site Right Femoral artery dressed using a 4 x 4 and Tegaderm. 10:27:00 Post right femoral artery:stable 10:27:05 Post Procedure Pulses reassessed and unchanged 10:27:13 Post-procedure physical assessment completed. ASA score P 2 - A patient with mild systemic disease as per Rishi Mcelroy MD. 10:27:18 Post procedure rhythm: unchanged. 10:27:23 Estimated blood loss: 10 ml 10:27:24 Post procedure instruction explained to patient.Patient verbalizes understanding. 10:27:26 Patient needs reinforcement of post procedure teaching. 10:29:10 Procedure type changed to Cath procedure, Diagnostic procedure, LHC, LHC w/Coronaries, FFR/IVUS, FFR Initial, Sedation Charges, Moderate Sedation up to 30 minutes, PCI procedure, Coronary Stent, Coronary Stent Initial x2 10:29:15 Procedure and supply charges have been captured, reviewed, submitted and are correct. 10:29:23 Procedure Complication : No complications 10::28 Vital chart was stopped 10::29 See physician's report for complete and final results. 10:29:31 Report given to Pre/Post Procedure Room. 10:29:37 Patient transfered to Pre/Post Procedure Room with Stretcher. 10::43 Procedure ended. 10::43 Full Disclosure recording stopped 10:29:56 ACC-PCI Only Patient was given prescriptions, or instructed by Rishi Mcelroy MD to start/continue the following medications upon discharge: Plavix 10:30:00 End room use (Document Last) Intervention Summary Intervention Notes Time ActionType Lesion and Equipment Used Action# Pressure Duration Attributes 10:14:29 Place stent Mid RCA SHELLY RX 3.5 x 1 23 00:10 30 stent ([id number]) 10:15:08 Reinflate Prox RCA SHELLY RX 3.5 x 1 23 00:10 stent 30 stent balloon ([id number]) 10:18:56 Place stent Mid CX SHELLY RX 2.25 x 1 21 00:10 12 stent ([id number]) Device Usage Item Name Manufacture Quantity Catalog Number Hospital Part Current Minimal Lot# / Charge Number Stock Stock Serial# Code ACIST Syringe Acist 1 93607 953560 452639 195969 20 (65501) Medical Systems Inc Bag Decanter Microtek 1 2001S 656312 23687 028668 5 (2001S) Medical Inc. Medline Cath Medline 1 [id number] 373169 34415 715487 5 Pack ([id number]) ACIST Hand Acist 1 08133 462350 779401 877350 5 Control Medical (00349) Systems Inc ACIST Manifold Acist 1 01957 164096 719995 774250 5 (29827) Medical Systems Inc Tegaderm 4 x 4 3M 1 1626W 952068 370785 854694 5 (1626W) EMERALD Guide Cardinal 1 502-455 002859 845687 868528 5 Wire (502-455) Health SHEATH 5FR Terumo 1 IWJ304 606972 018117 860426 5 Homeland ([id number]) DIAGNOSTIC Cardinal 1 DD5269 320532 34478 152768 30 Multipack 5Fr Health catheter set (XL7951) MULTIPACK Cardinal 1 252778 5 Pigtail 5 Fr Health catheter MULTIPACK JL Cardinal 1 241520 5 4.0 5Fr Health catheter MULTIPACK 3DRC Cardinal 1 309488 5 5Fr catheter Health INFLATOR Merit Merit 1 AG8821 202749 366849 953795 15 BasixBeanStockdk Medical (FS0544) SHEATH 6FR Terumo 1 SQO836 347850 942272 775332 40 Homeland (HMI939) Teague Teague 1 69610B 694077 175843374 289907 5 Verrata Plus pressure wire (84016S) GUIDE 6FR AR Medtronic 1 [id number] 257426 81136 622866 1 1.0 catheter (OM0LB22) SHELLY RX 3.5 x Medtronic 1 [id number] 397813 7514380 473636 5 [id number] 30 stent ([id number]) CHOICE PT [place] 1 [id number] 250725 329304 725725 5 Extra Support Scientific 182cm wire ([id number]) GUIDE 6FR XB Cardinal 1 [id number] 313512 188026 909543 2 3.5 catheter Health ([id number]) SHELLY RX 2.25 x Medtronic 1 [id number] 183994 0123694 672608 5 [id number] 12 stent ([id number]) EXOSEAL 6Fr Cardinal 1 EX600 295865 545467 810724 10 (EX600) Health Signature Audit [place] Stage Time Signature Unsigned Intra-Procedure 06/24/2019 Fatemeh 10:30:53 AM Hossein RT(R) (CV) Intra-Procedure 06/24/2019 Rashid 10:31:27 AM Vielka RAJPUT Intra-Procedure 06/24/2019 Rishi Mcelroy 10:31:59 AM [facility] [address] [place] [address]
[2019-06-24] MEDS ORDERED: NITROQUICK0.4 MG SL (08:17)
[2019-06-24 08:36] VITALS: BP 139/90; Ht 172.7 cm; Wt 104.5 kg
[2019-06-24 08:51] LABS: BASOPHILS 0.5 % (0-2); EOSINOPHILS 4.2 % (0-7); HEMATOCRIT 39.4 % (42.0-54.0); HEMOGLOBIN 13.8 g/dL (13.5-17.5); IMMATURE GRANULOCYTES 0.3 % (0-5); LYMPHOCYTES 25.4 % (15-50); MCH 31.9 pg (26.0-34.0); MCV 91.2 fL (80.0-100.0); MEAN PLATELET VOLUME 10.5 fL (7.4-10.4); MONOCYTES 9.1 % (2-11); NEUTROPHILS 60.5 % (40-80); PLATELET COUNT 213 10x3/uL (130-400); RBC 4.32 10x6/uL (4.20-6.10); RDW 12.3 % (11.5-14.5)
[2019-06-24 09:04] LABS: ANION GAP 9.9 mmol/L (8-16); CALCIUM 8.7 mg/dL (8.5-10.1); CARBON DIOXIDE 28.3 mmol/L (21.0-32.0); CHOL - HDL RATIO 5.6 ratio (2.3-4.9); CREATININE - SERUM 1.1 mg/dL (0.6-1.3); LDL-HDL RATIO 3.5 ratio (1.5-3.5); POTASSIUM - SERUM 4.2 mmol/L (3.5-5.1)
[2019-06-24] MEDS ORDERED: PLAVIX75 MG PO (10:43)
--- NOTE | 2019-06-24 11:00 | NUR ---
PT SLEEPING, RESP WITH EASE ON O2 AT 2LPM VIA NC. NSR, RATE IS 66, BP IS 102/66. HOB FLAT, DRESSING CDI, PEDAL PULSES PALPABLE.
--- NOTE | 2019-06-24 11:15 | NUR ---
PT SLEEPING, AWAKENS EASILY AND DENIES ANY C/O. DRESSING CDI RIGHT GROIN, PEDAL PULSES PALPABLE. HOB IS FLAT, VSS, AT BEDSIDE, CALL LIGHT IN REACH.
--- NOTE | 2019-06-24 11:30 | NUR ---
PT DENIES ANY C/O. NSR, DENIES ANY C/O CHEST PAIN. DRESSING IS CDI TO RIGHT GROIN, PEDAL PULSES PALPABLE. RESP WITH EASE ON O2 AT 2LPM, AT BEDSIDE, HOB IS FLAT.
--- NOTE | 2019-06-24 12:00 | NUR ---
PT ALERT, REQUESTS SANDWICH AND PO FLUIDS AND THESE SERVED. DRESSING IS CDI TO RIGHT GROIN, PEDAL PULSES PALPABLE. HOB IS FLAT, FAMILY AT BEDSIDE, VSS.
--- NOTE | 2019-06-24 12:55 | NUR ---
PT SLEEPING, RESP WITH EASE, DRESSING IS CDI RIGHT GROIN, AREA IS SOFT AND NONTENDER, PEDAL PULSES PALPABLE. VSS. HOB IS FLAT, CALL LIGHT IN REACH.
--- NOTE | 2019-06-24 13:14 | NUR ---
PT SLEEPING, DRESSING IS CDI, PEDAL PULSES PALPABLE. VSS, HOB FLAT.
--- NOTE | 2019-06-24 13:39 | NUR ---
HOB ELEVATED 30 DEGREES, PT HAS DARIA SANDWICH WITH NO NAUSEA. IS ALERT AND DENIES ANY C/O CHEST PAIN. NSR, RATE 75. BP IS 102/65, RESP WITH EASE ON ROOM AIR.
--- NOTE | 2019-06-24 14:44 | NUR ---
1400 HOB FULLY ELEVATED. DRESSING CDI TO RIGHT GROIN, PEDAL PULSES PALPABLE. VSS. AT BEDSIDE. 1430 DRESSING REMAINS CDI TO RIGHT GROIN, AREA IS SOFT AND NONTENDER. PEDAL PULSES PALPABLE. DC INSTRUCTIONS REVIEWED WITH PT AND WHO VERBALIZE UNDERSTANDING. [facility] CALLED TO [facility] PER PT REQUEST. IV DC'D WITH CATH INTACT AND PT IS DRESSING FOR DC TO HOME. 1440 PT HAS VOIDED QS, DENIES ANY C/O. PT ESCORTED TO PRIVATE AUTO VIA WC BY NURSE WITH DRIVING HIM HOME. PT DENIES ANY C/O UPON DC.
--- NOTE | 2019-07-03 13:30 | OP ---
PATIENT NAME: BRADY TAYLOR MEDICAL RECORD: [id number] :58 LOCATION:D[facility] ADMISSION DATE: SURGEON: DUC FINLEY MD DATE OF OPERATION: 06/24/2019 PROCEDURES: 1. PTCA stent left circumflex. 2. PTCA stent RCA. 3. IFR. 4. Left heart catheterization. 5. Selective coronary angiography. 6. Left ventriculogram. INDICATION: Angina and coronary artery disease. PROCEDURE IN DETAIL: After informed consent was obtained and after a detailed description of risks, benefits as well as alternative therapies, the patient elected to proceed with angiogram and angioplasty. The right femoral area was prepped and draped in normal sterile fashion. Right femoral artery was cannulated via modified Seldinger technique with placement of 6-Polish sheath. All catheters exchanged through this sheath. FINDINGS: Left ventriculogram was performed in standard 30-degree LIGHT view, reveals good cardiac wall motion throughout all segments. Overall ejection fraction estimated at 60%. SELECTIVE CORONARY ANGIOGRAPHY: 1. Left main is with no significant angiographic disease. 2. Left anterior descending has mild irregularities, no flow-limiting stenosis. Previously placed stents are widely patent. 3. Left circumflex has previously placed stent in the first obtuse marginal with 90% in-stent restenosis. 4. The right coronary has previously placed stents. There is up to 70% to 80% in-stent restenosis and IFR was abnormal at 0.85. PTCA STENT OF THE RCA: The stent used was a 3.5 x 30 mm [place] taken to 23 atmospheres. Result was 0% residual stenosis. PTCA STENT OF THE LEFT CIRCUMFLEX: The stent used was a 2.25 x 12 mm [place] taken to 21 atmospheres. Result was 0% residual stenosis. OVERALL IMPRESSION: Successful percutaneous transluminal coronary angioplasty stent right coronary artery and left circumflex, both going from 70% to 95% initial stenosis to 0% residual. TRANSINT:[id number] Voice Confirmation ID: [id number] DOCUMENT ID: [id number] OPERATIVE REPORT [id number] BRADY TAYLOR LAVON DUC FINLEY MD at 1330 CC: [id number] DICTATION DATE: 06/24/19 1028 ANODE MACHINE OPERATOR: 06/24/19 1242 DEP CLI 06/24/19 [facility] [address] [place] [address]
== END 2019-06-24 14:40 | disposition home or self-care (01) ==
LOC: D.CATH 07:49 → D.CLR 08:15 → D.CATH 10:00
PROVIDERS: ATTEND Internal Medicine Interventional Cardiology
DX: I25.110 Atherosclerotic heart disease of native coronary artery with unstable angina pectoris (principal); R94.30 Abnormal result of cardiovascular function study, unspecified; R06.02 Shortness of breath

== ENCOUNTER → 2019-11-13 10:05 | Outpatient (CLI) | payer BC ==
[2019-06-24 08:36] VITALS: BMI 35.0
[~2019-11-13 10:05] MED LIST changes: +NITROQUICK0.4 MG SL
== END | disposition home or self-care (01) ==
LOC: D.MRI 10:05
PROVIDERS: ATTEND Orthopaedic Surgery
DX: M79.652 Pain in left thigh (principal)

== ENCOUNTER → 2019-11-17 17:29 | Outpatient (CLI) | payer BC ==
[2019-06-24 08:36] VITALS: BMI 35.0
[2019-11-17 18:46] LABS: BASOPHILS 0.5 % (0-2); EOSINOPHILS 4.1 % (0-7); HEMATOCRIT 42.3 % (42.0-54.0); HEMOGLOBIN 14.7 g/dL (13.5-17.5); IMMATURE GRANULOCYTES 0.3 % (0-5); LYMPHOCYTES 30.4 % (15-50); MCH 31.7 pg (26.0-34.0); MCHC 34.8 g/dL (31.0-37.0); MCV 91.4 fL (80.0-100.0); NEUTROPHILS 53.7 % (40-80); PLATELET COUNT 232 10x3/uL (130-400); RBC 4.63 10x6/uL (4.20-6.10); RDW 12.7 % (11.5-14.5); WBC 6.6 10x3/uL (4.8-10.8)
[2019-11-17 19:06] LABS: URIC ACID 5.2 mg/dL (2.6-7.2)
[2019-11-17 20:28] LABS: ERYTHROCYTE SEDIMENTATION RATE 5 mm/hr (0-20)
[2019-11-19 06:09] LABS: ANA REFLEX - DIRECT Negative (Negative)
== END | disposition home or self-care (01) ==
LOC: D.LABREF 17:29
PROVIDERS: ATTEND Clinical Nurse Specialist Family Health
DX: M25.562 Pain in left knee (principal)

== ENCOUNTER 2019-12-17 06:57 | Outpatient (CLI) | payer BC ==
[~2019-12-17] VITALS: Ht 172.7 cm; Wt 102.3 kg
[2019-12-17 07:55] LABS: CALC OSMOLALITY 295 mosm/kg (275-300); CALCIUM 9.4 mg/dL (8.5-10.1); CARBON DIOXIDE 25.7 mmol/L (21.0-32.0); CHLORIDE - SERUM 107 mmol/L (98-107); GLUCOSE 164 mg/dL (74-106); POTASSIUM - SERUM 4.2 mmol/L (3.5-5.1); SODIUM 144 mmol/L (136-145); UREA NITROGEN 27 mg/dL (7-18); eGFR NON AFRICAN AMERICAN 81 mL/min (90-120)
[2019-12-17 08:09] LABS: HEMATOCRIT 42.5 % (42.0-54.0); HEMOGLOBIN 14.6 g/dL (13.5-17.5); LYMPHOCYTES 21.7 % (15-50); MCHC 34.4 g/dL (31.0-37.0); MCV 90.2 fL (80.0-100.0); MEAN PLATELET VOLUME 10.7 fL (7.4-10.4); NEUTROPHILS 67.2 % (40-80); PLATELET COUNT 204 10x3/uL (130-400); RBC 4.71 10x6/uL (4.20-6.10); RDW 12.6 % (11.5-14.5); WBC 6.9 10x3/uL (4.8-10.8)
[2019-12-17 08:11] LABS: ALBUMIN 3.7 g/dL (3.4-5.0); ALKALINE PHOSPHATASE 67 U/L (30-120); ALT (SGPT) 71 U/L (10-68); BILIRUBIN - TOTAL 0.26 mg/dL (0.2-1.3); CKMB 0.4 U/L (0.0-3.6); CREATINE KINASE 98 UL (21-232); PRO BNP 52 pg/mL (0-125); PROTEIN - SERUM 6.7 g/dL (6.4-8.2)
[2019-12-17 08:12] LABS: TROPONIN-I < 0.017 ng/mL (0.000-0.060)
[2019-12-17] MEDS ORDERED: CRESTOR20 MG PO (08:45)
[2019-12-17 10:46] LABS: CREATINE KINASE 104 UL (21-232)
[2019-12-17 10:53] LABS: TROPONIN-I < 0.017 ng/mL (0.000-0.060)
--- NOTE | 2019-12-17 11:04 | NUR ---
PT ARRIVED TO FLOOR VIA WHEELCHAIR A/O X4. AT BEDSIDE. NO S/S OF DISTRESS AT THIS TIME. BED LOW CALL LIGHT WITHIN REACH. WILL CONTINUE TO MONITOR.
[2019-12-17] MEDS ORDERED: MOBIC7.5 MG (11:36)
[2019-12-17] MEDS ORDERED: CO Q-10150 MG PO (11:37)
[2019-12-17 12:41] VITALS: BP 140/94; BMI 34.2
[2019-12-17 13:44] VITALS: Ht 172.7 cm; Wt 102.3 kg
--- NOTE | 2019-12-17 16:22 | NUR ---
PT SITTING UP IN BED A/O X4 WITH AT BEDSIDE. NO S/S OF DISTRESS AT THIS TIME. BED LOW CALL LIGHT WITHIN REACH. WILL CONTINUE TO MONITOR.
[2019-12-17 16:35] LABS: CKMB 0.5 U/L (0.0-3.6); CREATINE KINASE 105 UL (21-232)
[2019-12-17 16:37] LABS: TROPONIN-I < 0.017 ng/mL (0.000-0.060)
--- NOTE | 2019-12-17 19:31 | NUR ---
RECEIVED BEDSIDE REPORT. PATIENT IS ALERT AND ORIENTED, RESTING COMFORTABLY IN BED. RESPIRATIONS ARE EVEN AND UNLABORED. NO S/S OF DISTRESS. NO C/O PAIN. CALL LIGHT WITHIN REACH. WILL CPOC.
[2019-12-17 20:00] VITALS: BP 137/86
[2019-12-17 22:44] LABS: CKMB 0.6 U/L (0.0-3.6); CREATINE KINASE 107 UL (21-232)
[2019-12-17 22:45] LABS: TROPONIN-I < 0.017 ng/mL (0.000-0.060)
[2019-12-18] VITALS: BP 120/80
[2019-12-18 04:00] VITALS: BP 114/73
--- NOTE | 2019-12-18 07:54 | NUR ---
ASSESSMENT DONE. DENIES NEEDS
[2019-12-18 09:16] VITALS: BP 142/86
--- NOTE | 2019-12-18 11:10 | NUR ---
I have reviewed this patient and I concur with the Shift Assessment completed by the Licensed Practical Nurse today this shift.
[2019-12-18 14:18] VITALS: BP 130/92
--- NOTE | 2019-12-18 18:47 | NUR ---
DC GIVEN TO PT , DC HOME PER PERSONAL CAR
== END 2019-12-18 18:48 | disposition home or self-care (01) ==
LOC: D.ER 06:57 → D.OPS 06:57 → D.M2 06:57 → EDSTATUS 10:16 → D.OPS 12-18 18:48
PROVIDERS: Emergency Medicine; ATTEND Family Medicine
DX: R07.9 Chest pain, unspecified (principal)